=== PATIENT | male | born 1960 | race Caucasian/White ===

== ENCOUNTER 2020-06-01 14:59 | Emergency (ER) | payer OTHER ==
[2020-06-01] MEDS ORDERED: Tenecteplase 50 MG Kit ONE (15:04)
[2020-06-01] MEDS ORDERED: Sodium Chloride 0.9% 10 ML Syringe FLUSH PRN (15:05)
[2020-06-01] MEDS ORDERED: Tenecteplase 50 MG Kit IV ONE (15:06)
[2020-06-01] MEDS ORDERED: Heparin Sodium 5,000 Units/ML Vial IVPUSH ONE (15:07)
[2020-06-01] MEDS ORDERED: Sodium Chloride 0.9% 1,000 ML IV SCH (15:15)
[2020-06-01] MEDS ORDERED: Morphine 4 MG/ML Syringe IVPUSH ONE (15:15)
[2020-06-01] MEDS ORDERED: Heparin Sodium/D5W 25,000 UNITS/500 ML BAG IV SCH (15:15)
[2020-06-01] MEDS ORDERED: Nitroglycerin/D5W 25 MG/250 ML BOTTLE IV SCH (15:15)
--- NOTE | 2020-06-01 15:31 | EDM.PDOC ---
ED HPI GENERAL MEDICAL PROBLEM - General Chief Complaint: Chest Pain Stated Complaint: [facility] Time Seen by Provider: 06/01/20 15:05 Source of Information: Reports: Patient, EMS History Limitations: Reports: No Limitations - History of Present Illness INITIAL COMMENTS - FREE TEXT/NARRATIVE: The patient presents by [facility] for chest pain. A STEMI alert was called. The patient was golfing today and he developed the chest pain. He has some shortness of breath and he is diaphoretic. He has no fever, chills, cough, congestion, runny nose, abdominal pain, nausea or vomiting. He says about 15 years ago he had an [place] and he had an angioplasty done but no stents. He is on crestor. He does not smoke. He has no other medical problems. EMS gave him aspirin, nitro and fentanyl. That did not help with the pain. Onset: Sudden Duration: Minutes: Location: Reports: Chest Quality: Reports: Pressure Severity: Severe Improves with: Reports: None Worsens with: Reports: None Context: Reports: Activity (golfing) Associated Symptoms: Reports: Chest Pain, Shortness of Breath. Denies: Cough, Fever/Chills, Headaches, Nausea/Vomiting Chest Pain Score (Numeric/FACES): 10 - Related Data Allergies Allergy/AdvReac Type Severity Reaction Status Date / Time No Known Allergies Allergy Verified 06/01/20 15:06 Home Meds: Home Meds Rosuvastatin [Crestor] 20 mg PO DAILY 06/01/20 [History] Past Medical History Cardiovascular History: Reports: High Cholesterol, Hypertension, [place] Social & Family History - Family History Family Medical History: Noncontributory - Tobacco Use Smoking Status *Q: Never Smoker Second Hand Smoke Exposure: No ED ROS GENERAL - Review of Systems Review Of Systems: See Below Constitutional: Reports: No Symptoms HEENT: Reports: No Symptoms Respiratory: Reports: Shortness of Breath Cardiovascular: Reports: Chest Pain Endocrine: Reports: No Symptoms GI/Abdominal: Reports: No Symptoms : Reports: No Symptoms Musculoskeletal: Reports: No Symptoms ED EXAM, GENERAL - Physical Exam Exam: See Below Exam Limited By: No Limitations General Appearance: Alert, Mild Distress Ears: Normal External Exam Nose: Normal Inspection Head: Atraumatic, Normocephalic Neck: Normal Inspection Respiratory/Chest: No Respiratory Distress, Lungs Clear, Normal Breath Sounds Cardiovascular: No Edema, No Murmur, Tachycardia GI/Abdominal: Soft, Non-Tender, No Organomegaly, No Mass Back Exam: Normal Inspection Extremities: Normal Inspection EKG INTERPRETATION EKG Date: 06/01/20 Time: 15:00 Rhythm: Other (sinus tachycardia.) Rate (Beats/Min): 104 [place]: Normal P-Wave: Present QRS: Normal ST-T: Elevated (I, aVL, and V2) QT: Normal EKG Interpretation Comments: ST depression in the inferior leads Course - Vital Signs Last Recorded V/S: Last Vital Signs Temp 98.3 F 06/01/20 15:08 Pulse 105 H 06/01/20 15:08 Resp 16 06/01/20 15:08 BP 117/81 06/01/20 15:08 Pulse Ox 95 06/01/20 15:08 - Orders/Labs/Meds Orders: Active Orders 24 hr Category Date Time Status Cardiac Monitoring [RC] . DIRECTED Care 06/01/20 15:05 Active EKG Documentation Completion [RC] STAT Care 06/01/20 15:06 Active Oxygen Therapy [RC] PRN Care 06/01/20 15:05 Active Peripheral IV Care [RC] . DIRECTED Care 06/01/20 15:06 Active Chest 1V Frontal [CR] Stat Exams 06/01/20 15:06 Ordered CBC WITH AUTO DIFF [HEME] Stat Lab 06/01/20 15:05 Received COMPREHENSIVE METABOLIC PN,CMP [CHEM] Stat Lab 06/01/20 15:05 Received PTT,PARTIAL THROMBOPLSTIN TIME [COAG] Stat Lab 06/01/20 15:05 Received TROPONIN I [CHEM] Stat Lab 06/01/20 15:05 Received Heparin Sodium/D5W [Heparin 25,000 Units in D5W 500 ML] Med 06/01/20 15:15 Active 25,000 units in 500 ml IV TITRATE Nitroglycerin/D5W [Nitroglycerin 25 MG/D5W 250 ML] Med 06/01/20 15:15 Active 25 mg in 250 ml IV TITRATE Sodium Chloride 0.9% [Normal Saline] 1,000 ml Med 06/01/20 15:15 Active IV ASDIRECTED Sodium Chloride 0.9% [Saline Flush] Med 06/01/20 15:05 Active 10 ml FLUSH ASDIRECTED PRN Peripheral IV Insertion Adult [OM.PC] Stat Oth 06/01/20 15:05 Ordered Medication Orders Heparin Sodium/Dextrose (Heparin 25,000 Units In D5w 500 Ml) 25,000 units in 500 mls @ 20.412 mls/hr IV TITRATE HAILEY; Protocol Nitroglycerin/Dextrose (Nitroglycerin 25 Mg/D5w 250 Ml) 25 mg in 250 mls @ 3 mls/hr IV TITRATE HAILEY; Protocol Sodium Chloride (Normal Saline) 1,000 mls @ 125 mls/hr IV ASDIRECTED HAILEY Sodium Chloride (Saline Flush) 10 ml FLUSH ASDIRECTED PRN PRN Reason: Keep Vein Open Meds: Medications Generic Name Dose Route Start Last Admin Trade Name Freq PRN Reason Stop Dose Admin Heparin Sodium/Dextrose 25,000 units in 500 mls @ 20.412 mls/hr 06/01/20 15:15 Heparin 25,000 Units In D5w 500 Ml IV TITRATE HAILEY Protocol 10 UNITS/KG/HR Nitroglycerin/Dextrose 25 mg in 250 mls @ 3 mls/hr 06/01/20 15:15 Nitroglycerin 25 Mg/D5w 250 Ml IV TITRATE HAILEY Protocol Sodium Chloride 1,000 mls @ 125 mls/hr 06/01/20 15:15 Normal Saline IV ASDIRECTED HAILEY Sodium Chloride 10 ml 06/01/20 15:05 Saline Flush FLUSH ASDIRECTED PRN Keep Vein Open Discontinued Medications Generic Name Dose Route Start Last Admin Trade Name Freq PRN Reason Stop Dose Admin Heparin Sodium (Porcine) 5,000 units 06/01/20 15:07 Heparin Sodium IVPUSH 06/01/20 15:08 .BOLUS ONE Morphine Sulfate 4 mg 06/01/20 15:15 Morphine IVPUSH 06/01/20 15:16 ONETIME ONE Tenecteplase Confirm 06/01/20 15:04 Tnkase Administered 06/01/20 15:05 Dose 50 mg .ROUTE .STK-MED ONE Tenecteplase 50 mg 06/01/20 15:06 Tnkase IV 06/01/20 15:07 ONETIME ONE Protocol - Re-Assessments/Exams Free Text/Narrative Re-Assessment/Exam: 06/01/20 15:32 A STEMI alert was called in the field. The 12 lead from EMS did show ST elevation in the lateral leads. Our EKG shows a sinus tachycardia with ST elevation in I, aVL, and V2 with reciprocal changes in II, III, and aVF. This is consistent with a STEMI. I ordered an IV NS at 125mL/hr, EKG, CXR, labs, TnKase 50mg IV, heparin bolus, heparin drip and nitro drip. I called [facility] in [place] and talked with Dr Carrillo the operations administrative assistant and she accepted the patient. We have contacted [facility] and they are coming to transport the patient. His CXR looks good. When we were waiting for flight he went into V-tach. He did not go unresponsive but he did not feel well. Before we could charge the defibrillator to cardiovert him he converted into a sinus rhythm. He feels better now. The pain is not gone but it is better. 06/01/20 15:38 Departure - Departure Time of Disposition: 15:40 Disposition: DC/Tfer to Acute Hospital 02 Reason for Transfer *Q: Primary PCI Indicated Condition: Serious Clinical Impression: STEMI (ST elevation myocardial infarction) Qualifiers: Involved coronary artery: other coronary artery Qualified Code(s): I21.29 - ST elevation (STEMI) myocardial infarction involving other sites Sepsis Event Note (ED) - Evaluation Sepsis Screening Result: No Definite Risk - Focused Exam Vital Signs: Vital Signs Temp Pulse Resp BP Pulse Ox 06/01/20 15:08 98.3 F 105 H 16 117/81 95 - My Orders Last 24 Hours: My Active Orders 06/01/20 15:05 Cardiac Monitoring [RC] . DIRECTED Oxygen Therapy [RC] PRN CBC WITH AUTO DIFF [HEME] Stat COMPREHENSIVE METABOLIC PN,CMP [CHEM] Stat PTT,PARTIAL THROMBOPLSTIN TIME [COAG] Stat TROPONIN I [CHEM] Stat Sodium Chloride 0.9% [Saline Flush] 10 ml FLUSH ASDIRECTED PRN Peripheral IV Insertion Adult [OM.PC] Stat 06/01/20 15:06 EKG Documentation Completion [RC] STAT Peripheral IV Care [RC] . DIRECTED Chest 1V Frontal [CR] Stat 06/01/20 15:15 Heparin Sodium/D5W [Heparin 25,000 Units in D5W 500 ML] 25,000 units in 500 ml IV TITRATE Nitroglycerin/D5W [Nitroglycerin 25 MG/D5W 250 ML] 25 mg in 250 ml IV TITRATE Sodium Chloride 0.9% [Normal Saline] 1,000 ml IV ASDIRECTED - Assessment/Plan Last 24 Hours: My Active Orders 06/01/20 15:05 Cardiac Monitoring [RC] . DIRECTED Oxygen Therapy [RC] PRN CBC WITH AUTO DIFF [HEME] Stat COMPREHENSIVE METABOLIC PN,CMP [CHEM] Stat PTT,PARTIAL THROMBOPLSTIN TIME [COAG] Stat TROPONIN I [CHEM] Stat Sodium Chloride 0.9% [Saline Flush] 10 ml FLUSH ASDIRECTED PRN Peripheral IV Insertion Adult [OM.PC] Stat 06/01/20 15:06 EKG Documentation Completion [RC] STAT Peripheral IV Care [RC] . DIRECTED Chest 1V Frontal [CR] Stat 06/01/20 15:15 Heparin Sodium/D5W [Heparin 25,000 Units in D5W 500 ML] 25,000 units in 500 ml IV TITRATE Nitroglycerin/D5W [Nitroglycerin 25 MG/D5W 250 ML] 25 mg in 250 ml IV TITRATE Sodium Chloride 0.9% [Normal Saline] 1,000 ml IV ASDIRECTED
[2020-06-01] MEDS ORDERED: Ondansetron 4 MG/2 ML SDV ONE (15:36)
[2020-06-01] MEDS ORDERED: Ondansetron 4 MG/2 ML SDV IVPUSH ONE (15:36)
[2020-06-01] MEDS ORDERED: Sodium Chloride 0.9% 1,000 ML ONE (15:46)
--- NOTE | 2020-06-02 11:03 | CR ---
Chest: Portable view of the chest was obtained. Comparison: No prior chest imaging is available. Heart size and mediastinum are normal for portable technique. Lungs are clear with no acute parenchymal change. Bony structures are grossly intact. Impression: 1. Nothing acute is seen on portable chest x-ray. Diagnostic code #1 This report was dictated in MDT
== END 2020-06-01 16:25 ==
LOC: EDBD 14:59 → JD.ED 14:59
DX: I21.29 ST elevation (STEMI) myocardial infarction involving other sites (principal); I10 Essential (primary) hypertension; E78.00 Pure hypercholesterolemia, unspecified; R00.0 Tachycardia, unspecified; Z79.899 Other long term (current) drug therapy
CPT/HCPCS: 36415; 71045; 80053; 84484; 85025; 85730; 92977; 93005; 96365; 96367; 96375; 99285; J1644; J2270; J2405; J3101; J3490; J7030; 93010